=== PATIENT | female | born 1965 | race Caucasian/White ===

== ENCOUNTER 2016-06-29 12:16 | Emergency (ER) | payer OTHER ==
[~2016-06-29] VITALS: Ht 160 cm; Wt 81.8 kg
[~2016-06-29 12:16] MED LIST: B-COCAP9 PO; CLOT1CRE TOP; LIPI20TA PO; MELO15TA2 PO; METO25 PO; NAPR220T95 PO; OXYB5TAB PO
[2016-06-29 12:17] VITALS: BP 229/128; PULSE 89; RESP 16; TEMP 98.2; O2SAT 98
[2016-06-29 13:26] VITALS: BP 136/84; PULSE 65
[2016-06-29] MEDS ORDERED: BENZ100 PO (13:26)
--- NOTE | 2016-06-29 13:26 | PD ---
HPI Chief Complaint: Cold / Flu Symptoms Time Seen by Provider: 13:23 Travel History International Travel<30 days: No Contact w/Intl Traveler<30days: No Traveled to known affect area: No History of Present Illness HPI 51-year-old female with history of hypertension presents to the emergency department for evaluation of nasal congestion, runny nose, sore throat and cough for 5 days. States that her nasal congestion and runny nose has improved since taking [id number] Benadryl and cold medications. States that her cough has persisted. States it is a dry cough that is worse at night. States that initially she had subjective fevers the first 2 days but has since not had any fever. Denies chest pain, shortness of breath, difficulty breathing, lightheadedness, dizziness, nausea, vomiting, abdominal pain. The patient is a smoker but denies any history of lung disease. No other complaints. PFSH Past Medical History Cardiovascular Problems: Yes (HTN ) Diminished Hearing: No Hypertension: Yes ?: Not Menopausal: Yes : 0 Para: 0 Miscarriage: 0 : 0 Social History Alcohol Use: Yes (OCCASIONALLY) Tobacco Use: Yes (1-1.5 PPD) Substance Use: No Allergies-Medications (Allergen,Severity, Reaction): Coded Allergies: Clindamycin (Verified Allergy, Severe, tongue swelling, 06/29/16) Reported Meds & Prescriptions Reported Meds & Active Scripts Active Tessalon Perles (Benzonatate) 100 Mg Cap 100 Mg PO TID PRN 10 Days Review of Systems Except as stated in HPI: all other systems reviewed are Neg Physical Exam Narrative GENERAL: Well-nourished and well-developed pleasant female patient in no acute distress who is nontoxic appearing. SKIN: Warm and dry. HEAD: Normocephalic and atraumatic. EYES: No injection, drainage, or hyphema noted. PERRLA. EOMI. ENT: No nasal drainage noted. Oropharynx is clear and the TMs are normal with good landmarks. NECK: Supple and the trachea is midline. CARDIOVASCULAR: Regular rate and rhythm. RESPIRATORY: Breath sounds are equal bilaterally with no accessory muscle use, wheezing, rhonchi, or crackles. NEUROLOGICAL: Awake, alert, and oriented. Normal speech and gait. Cranial nerves are grossly intact. Data Data Last Documented VS Vital Signs Date Time Temp Pulse Resp B/P Pulse Ox O2 Delivery O2 Flow Rate FiO2 2/1/17 13:26 65 136/84 06/29/16 12:[address] [facility] Medical Decision Making Medical Screen Exam Complete: Yes Emergency Medical Condition: Yes Differential Diagnosis Bronchitis versus URI versus sinusitis versus pneumonia Narrative Course 51-year-old female presents to the emergency department for evaluation of nasal congestion, runny nose, sore throat and cough. Patient is afebrile, vital signs are stable. Physical examination is essentially unremarkable. Lungs are clear to auscultation. The patient has had symptoms for only 5 days. I do not think that she needs any antibiotics at this time. She'll be given Tessalon Perles. Discussed supportive care and when to return to the emergency department. She has an appointment with her PCP tomorrow. Patient is stable for discharge. Diagnosis Primary Impression: Acute bronchitis Qualified Code: J20.9 - Acute bronchitis, unspecified organism Referrals: Primary Care Physician Patient Instructions: Acute Bronchitis (ED), General Instructions Additional Instructions: Take [id number] Mucinex DM. Take medication as prescribed. Follow-up with your Primary Care Physician. Return to the ED for any acute worsening of symptoms. Med/Other Pt SpecificInfo: Prescription(s) given Scripts Benzonatate (Tessalon Perles)100 Mg [id number] Mg PO TID PRN (COUGH) 10 Days Ref 0 Prov:Juan Marc MD 06/29/16 Disposition: 01 DISCHARGE HOME Condition: Stable Lucina Zheng Jun 29, 2016 13:26
== END 2016-06-29 13:38 | disposition home or self-care (01) ==
LOC: NEPB 12:16
DX: J20.9 Acute bronchitis, unspecified (principal); F17.200 Nicotine dependence, unspecified, uncomplicated
CPT/HCPCS: 99283

== ENCOUNTER 2017-07-11 17:57 | Emergency (ER) | payer SELFPAY ==
[~2017-07-11] VITALS: Ht 162.6 cm; Wt 94.0 kg
[~2017-07-11 17:57] MED LIST changes: -B-COCAP9 PO; +BENZ100 PO; -CLOT1CRE TOP; -LIPI20TA PO; -MELO15TA2 PO; -METO25 PO; -NAPR220T95 PO; -OXYB5TAB PO
[2017-07-11 17:58] VITALS: BP 194/112; PULSE 83; RESP 18; TEMP 98.3; O2SAT 98
[2017-07-11] MEDS ORDERED: SODIUM CHLOR 0.9% 1000 ML INJ 1,000 ML IV SCH (18:27)
[2017-07-11] MEDS ORDERED: methylPREDNISolone SOD SUCC 125 MG/2 ML VIAL IM ONE (18:30)
[2017-07-11] MEDS ORDERED: EPINEPHrine HCL (1:1000) 1 MG/ML VIAL IM ONE ×2 (18:30→20:45)
[2017-07-11] MEDS ORDERED: FAMOTIDINE 20 MG/2 ML VIAL IV PUSH ONE (18:30)
[2017-07-11] MEDS ORDERED: diphenhydrAMINE HCL 50 MG/ML VIAL IM ONE (18:30)
[2017-07-11 18:37] VITALS: PULSE 87; RESP 16; O2SAT 98
[2017-07-11] MEDS ORDERED: METO-426 PO (18:39)
[2017-07-11] MEDS: SODIUM CHLORIDE 0.9% FLUSH 10 ML FLUSH IV FLUSH PRN ×2 (18:42→21:59)
--- NOTE | 2017-07-11 18:52 | PD ---
HPI Chief Complaint: Edema Time Seen by Provider: 18:15 Travel History International Travel<30 days: No Contact w/Intl Traveler<30days: No Traveled to known affect area: No History of Present Illness HPI 52-year-old female presents emergency department complaining of tongue swelling started about 4 PM today. Patient states that she was about to walk into her house when he started having a funny feeling on her tongue and it started swelling. Patient denies shortness of breath or chest pain. States that she has had an episode of this previously in June 2015 and 2016. States that she did take 2 Benadryl and use ice without significant relief today. Patient states that she has had burning of her tongue for the last year and a half and has never received any treatment for this. Since previously she has been given epi, Benadryl, steroids and had resolution in about 10 minutes. She denies chronic medical issues although she does smoke tobacco and states that her breathing has not been as good as it has been in previous years. Denies fever, chills, nausea, vomiting, diarrhea. Denies abdominal pain. PFSH Past Medical History Cardiovascular Problems: Yes Diminished Hearing: No Hypertension: Yes Menopausal: Yes : 0 Para: 0 Miscarriage: 0 : 0 Social History Alcohol Use: Yes (OCCASIONALLY) Tobacco Use: Yes (1-1.5 PPD) Substance Use: No Allergies-Medications (Allergen,Severity, Reaction): Coded Allergies: clindamycin (Verified Allergy, Severe, tongue swelling, 07/11/17) Reported Meds & Prescriptions Reported Meds & Active Scripts Active Epinephrine Inj Pack (Epinephrine) 0.15 Mg/0.15 Ml Pfpen 0.15 Mg IM ONCE PRN Medrol Dosepak (Methylprednisolone) 4 Mg Dspk 4 Mg PO DIRECTED Per Pharmacist direction Reported Metoprolol Tartrate 75 Mg Tab 75 Mg PO DAILY Review of Systems Except as stated in HPI: all other systems reviewed are Neg Physical Exam Narrative GENERAL: Well-nourished in no apparent distress, sitting comfortable in bed, somewhat muffled voice, no drooling SKIN: Focused skin assessment warm/dry. HEAD: Atraumatic. Normocephalic. EYES: Pupils equal and round. No scleral icterus. No injection or drainage. ENT: No nasal bleeding or discharge. Mucous membranes pink and moist. Right anterior tongue edema without airway obstruction, equal bilateral rise and fall of uvula, posterior pharynx nonedematous NECK: Trachea midline. No JVD. Neck supple, obese, no obvious lymphadenopathy, no obvious edema although limited exam secondary to obesity CARDIOVASCULAR: Regular rate and rhythm. No murmur appreciated. RESPIRATORY: No accessory muscle use. Diffuse wheezing with scant rhonchi GASTROINTESTINAL: Abdomen soft, non-tender, nondistended. MUSCULOSKELETAL: No obvious deformities. No clubbing. No cyanosis. No edema. NEUROLOGICAL: Awake and alert. No obvious cranial nerve deficits. Motor grossly within normal limits. Normal speech. PSYCHIATRIC: Appropriate mood and affect; insight and judgment normal. Data Data Last Documented VS Vital Signs Date Time Temp Pulse Resp B/P (MAP) Pulse Ox O2 Delivery O2 Flow Rate FiO2 07/11/17 23:32 07/11/17 21:56 108 07/11/17 18:37 16 98 07/11/17 18:35 Room Air 07/11/17 17:58 98.3 Orders Orders Complete Blood Count With Diff (07/11/17 18:27) Comprehensive Metabolic Panel (07/11/17 18:27) Ecg Monitoring (07/11/17 18:27) Iv Access Insert/Monitor (07/11/17 18:27) Oximetry (07/11/17 18:27) Diphenhydramine Inj (Benadryl Inj) (07/11/17 18:30) Methylprednisolone So Succ Inj (Solumedr (07/11/17 18:30) Famotidine Inj (Pepcid Inj) (07/11/17 18:30) Albuterol-Ipratropium Neb (Duoneb Neb) (07/11/17 18:30) Sodium Chlor 0.9% 1000 Ml Inj (Ns 1000 M (07/11/17 18:27) Sodium Chloride 0.9% Flush (Ns Flush) (07/11/17 18:30) Epinephrine (1:1000) Inj (Adrenalin (1:1 (07/11/17 18:30) Chest, Single Ap (07/11/17 ) Epinephrine (1:1000) Inj (Adrenalin (1:1 (07/11/17 20:45) Diphenhydramine Inj (Benadryl Inj) (07/11/17 21:00) Ed Discharge Order (2/13/18 23:18) Labs Laboratory Tests Test 07/11/17 18:51 White Blood Count 11.1 TH/MM3 Red Blood Count 5.61 MIL/MM3 Hemoglobin 16.1 GM/DL Hematocrit 47.1 % Mean Corpuscular Volume 83.9 FL Mean Corpuscular Hemoglobin 28.6 PG Mean Corpuscular Hemoglobin Concent 34.1 % Red Cell Distribution Width 14.1 % Platelet Count 379 TH/MM3 Mean Platelet Volume 7.8 FL Neutrophils (%) (Auto) 60.7 % Lymphocytes (%) (Auto) 29.8 % Monocytes (%) (Auto) 5.4 % Eosinophils (%) (Auto) 3.0 % Basophils (%) (Auto) 1.1 % Neutrophils # (Auto) 6.7 TH/MM3 Lymphocytes # (Auto) 3.3 TH/MM3 Monocytes # (Auto) 0.6 TH/MM3 Eosinophils # (Auto) 0.3 TH/MM3 Basophils # (Auto) 0.1 TH/MM3 CBC Comment DIFF FINAL Differential Comment Blood Urea Nitrogen 8 MG/DL Creatinine 0.81 MG/DL Random Glucose 80 MG/DL Total Protein 8.0 GM/DL Albumin 3.4 GM/DL Calcium Level 9.5 MG/DL Alkaline Phosphatase 169 U/L Aspartate Amino Transf (AST/SGOT) 19 U/L Alanine Aminotransferase (ALT/SGPT) 30 U/L Total Bilirubin 0.2 MG/DL Sodium Level 137 MEQ/L Potassium Level 4.0 MEQ/L Chloride Level 103 MEQ/L Carbon Dioxide Level 27.8 MEQ/L Anion Gap 6 MEQ/L Estimat Glomerular Filtration Rate 75 ML/MIN MDM Medical Decision Making Medical Screen Exam Complete: Yes Emergency Medical Condition: Yes Differential Diagnosis Hereditary angioedema, allergic reaction, anaphylaxis Narrative Course 52-year-old female presents emergency department complaining of tongue swelling started about 4 PM today. Patient states that she was about to walk into her house when he started having a funny feeling on her tongue and it started swelling. Patient denies shortness of breath or chest pain. States that she has had an episode of this previously in June 2015 and 2016. States that she did take 2 Benadryl and use ice without significant relief today. Patient states that she has had burning of her tongue for the last year and a half and has never received any treatment for this. Since previously she has been given epi, Benadryl, steroids and had resolution in about 10 minutes. She denies chronic medical issues although she does smoke tobacco and states that her breathing has not been as good as it has been in previous years. Denies fever, chills, nausea, vomiting, diarrhea. Denies abdominal pain. Patient does use tobacco. Vital signs stable. Labs demonstrates no electrolyte abnormalities, kidney function stable, white blood cells 11.1, RBCs 5.61, H&H 16.1 and 47.1. Chest X ray demonstrates no acute disease however, on physical exam wheezing was present bilateral lung garcia. Patient administered epinephrine, 1 L normal saline IV fluids, famotidine, Solu- Medrol, Benadryl. Patient states that she had significant improvement however, she still had the tongue swelling. Patient has had previous episodes that usually resolve within several minutes after administration of medication. Because she did not have complete resolution, administered 1 more dose of epinephrine and Benadryl. Patient remained stable during the visit today and do not demonstrate significant respiratory distress. She was observed for several hours in the emergency department today and remained stable. Patient states that her tongue swelling has significantly decreased and that she is feeling better overall. Please see Dr. Carmona note regarding this patient as well for final dispo. Diagnosis Primary Impression: Allergic reaction Qualified Codes: T78.40XA - Allergy, unspecified, initial encounter Referrals: Primary Care Physician Scripts Epinephrine Inj Pack (Epinephrine Inj Pack) 0.15 Mg/0.15 Ml Pfpen 0.15 MG IM ONCE Y for ALLERGIC REACTION, #1 PACK Prov: Tony Carmona MD 07/11/17 Methylprednisolone Dosepak (Medrol Dosepak) 4 Mg Dspk 4 MG PO DIRECTED, #1 DSPK 0 Refills Per Pharmacist direction Prov: Tony Carmona MD 07/11/17 Disposition: DISCHARGE HOME Condition: Stable Berna Murdock Jul 11, 2017 18:52
--- NOTE | 2017-07-11 19:01 | RADRPT ---
EXAM DATE/TIME: 07/11/2017 18:47 [facility] COMPARISON: CHEST SINGLE AP, December 03, 2015, 21:55. INDICATIONS : Wheezing. MEDICAL HISTORY : None. SURGICAL HISTORY : None. ENCOUNTER: Initial ACUITY: 1 day PAIN SCORE: 0/10 LOCATION: Bilateral chest FINDINGS: A single view of the chest demonstrates the lungs to be symmetrically aerated without evidence of mas s, infiltrate or effusion. The cardiomediastinal contours are unremarkable. Osseous structures are intact. CONCLUSION: No acute disease. Jacek Andrade MD on July 11, 2017 at 18:58 Board Certified Radiologist. This report was verified electronically.
[2017-07-11 19:07] LABS: AUTOMATED NEUTROPHIL # 6.7 TH/MM3 (1.8-7.7); BASOPHIL # 0.1 TH/MM3 (0-0.2); BASOPHIL % 1.1 % (0.0-2.0); EOSINOPHIL # 0.3 TH/MM3 (0-0.4); HEMATOCRIT 47.1 % (35.0-46.0); HEMOGLOBIN 16.1 GM/DL (11.6-15.3); LYMPH % 29.8 % (9.0-44.0); LYMPHOCYTE # 3.3 TH/MM3 (1.0-4.8); MEAN CELL VOLUME 83.9 FL (80.0-100.0); MEAN CORPUSCULAR HEMOGLOBIN 28.6 PG (27.0-34.0); MEAN CORPUSCULAR HGB CONC 34.1 % (32.0-36.0); MEAN PLATELET VOLUME 7.8 FL (7.0-11.0); MONO % 5.4 % (0.0-8.0); MONOCYTE # 0.6 TH/MM3 (0-0.9); NEUT % 60.7 % (16.0-70.0); PLATELET COUNT 379 TH/MM3 (150-450); RED BLOOD COUNT 5.61 MIL/MM3 (4.00-5.30); RED CELL DISTRIBUTION WIDTH 14.1 % (11.6-17.2); WHITE BLOOD COUNT 11.1 TH/MM3 (4.0-11.0)
[2017-07-11] MEDS: RESP: ALBUTEROL 2.5 MG/IPRATROPIUM 0.5 MG NEB (SCH) INH (19:20)
[2017-07-11 19:36] LABS: ALBUMIN 3.4 GM/DL (3.4-5.0); AST (GOT) 19 U/L (15-37); BICARBONATE 27.8 MEQ/L (21.0-32.0); BLOOD UREA NITROGEN 8 MG/DL (7-18); CALCIUM 9.5 MG/DL (8.5-10.1); CHLORIDE 103 MEQ/L (98-107); CREATININE 0.81 MG/DL (0.50-1.00); GLOMERULAR FILTRATION RATE 75 ML/MIN (>89); GLUCOSE,RANDOM 80 MG/DL (74-106); SODIUM (NA) 137 MEQ/L (136-145)
[2017-07-11 19:37] LABS: ALT (GPT) 30 U/L (10-53)
[2017-07-11 19:40] LABS: ALKALINE PHOSPHATASE 169 U/L (45-117); TOTAL BILIRUBIN ADULT 0.2 MG/DL (0.2-1.0)
[2017-07-11] MEDS ORDERED: diphenhydrAMINE HCL 50 MG/ML VIAL IV PUSH ONE (21:00)
[2017-07-11 21:56] VITALS: BP 172/77; PULSE 108
[2017-07-11] MEDS ORDERED: EPIN1INJ19 IM (23:16)
[2017-07-11] MEDS ORDERED: MEDR4PAK PO (23:16)
--- NOTE | 2017-07-11 23:18 | PD ---
Physical Exam Narrative Patient seen and examined. Patient has yearly swelling of her tongue and allergic reaction type symptoms since moving to [place] 4 years ago. Patient greatly improved after treatment by Berna MCINTOSH with steroids, Benadryl, and epinephrine. Observe for nearly 6 hours, patient's symptoms have almost entirely abated. Discharge Data Data Last Documented VS Vital Signs Date Time Temp Pulse Resp B/P (MAP) Pulse Ox O2 Delivery O2 Flow Rate FiO2 07/11/17 21:56 108 172/77 07/11/17 18:37 16 98 07/11/17 18:35 Room Air 07/11/17 17:58 98.3 Orders Orders Complete Blood Count With Diff (07/11/17 18:27) Comprehensive Metabolic Panel (07/11/17 18:27) Ecg Monitoring (07/11/17 18:27) Iv Access Insert/Monitor (07/11/17 18:27) Oximetry (07/11/17 18:27) Diphenhydramine Inj (Benadryl Inj) (07/11/17 18:30) Methylprednisolone So Succ Inj (Solumedr (07/11/17 18:30) Famotidine Inj (Pepcid Inj) (07/11/17 18:30) Albuterol-Ipratropium Neb (Duoneb Neb) (07/11/17 18:30) Sodium Chlor 0.9% 1000 Ml Inj (Ns 1000 M (07/11/17 18:27) Sodium Chloride 0.9% Flush (Ns Flush) (07/11/17 18:30) Epinephrine (1:1000) Inj (Adrenalin (1:1 (07/11/17 18:30) Chest, Single Ap (07/11/17 ) Epinephrine (1:1000) Inj (Adrenalin (1:1 (07/11/17 20:45) Diphenhydramine Inj (Benadryl Inj) (07/11/17 21:00) Labs Laboratory Tests Test 07/11/17 18:51 White Blood Count 11.1 TH/MM3 Red Blood Count 5.61 MIL/MM3 Hemoglobin 16.1 GM/DL Hematocrit 47.1 % Mean Corpuscular Volume 83.9 FL Mean Corpuscular Hemoglobin 28.6 PG Mean Corpuscular Hemoglobin Concent 34.1 % Red Cell Distribution Width 14.1 % Platelet Count 379 TH/MM3 Mean Platelet Volume 7.8 FL Neutrophils (%) (Auto) 60.7 % Lymphocytes (%) (Auto) 29.8 % Monocytes (%) (Auto) 5.4 % Eosinophils (%) (Auto) 3.0 % Basophils (%) (Auto) 1.1 % Neutrophils # (Auto) 6.7 TH/MM3 Lymphocytes # (Auto) 3.3 TH/MM3 Monocytes # (Auto) 0.6 TH/MM3 Eosinophils # (Auto) 0.3 TH/MM3 Basophils # (Auto) 0.1 TH/MM3 CBC Comment DIFF FINAL Differential Comment Blood Urea Nitrogen 8 MG/DL Creatinine 0.81 MG/DL Random Glucose 80 MG/DL Total Protein 8.0 GM/DL Albumin 3.4 GM/DL Calcium Level 9.5 MG/DL Alkaline Phosphatase 169 U/L Aspartate Amino Transf (AST/SGOT) 19 U/L Alanine Aminotransferase (ALT/SGPT) 30 U/L Total Bilirubin 0.2 MG/DL Sodium Level 137 MEQ/L Potassium Level 4.0 MEQ/L Chloride Level 103 MEQ/L Carbon Dioxide Level 27.8 MEQ/L Anion Gap 6 MEQ/L Estimat Glomerular Filtration Rate 75 ML/MIN [facility] Medical Record Reviewed: Yes Supervised Visit with SHANNON: Yes Differential Diagnosis Allergic reaction, angioedema Narrative Course See narrative Diagnosis Primary Impression: Allergic reaction Qualified Codes: T78.40XA - Allergy, unspecified, initial encounter Referrals: Primary Care Physician Patient Instructions: General Allergic Reaction (ED), General Instructions Additional Instruction: Medrol Dosepak as prescribed. Follow-up with your doctor. Benadryl 25-50 mg every 8 hours as needed for swelling. EpiPen as directed only as needed. Return probably for worsening Scripts Epinephrine Inj Pack (Epinephrine Inj Pack) 0.15 Mg/0.15 Ml Pfpen 0.15 MG IM ONCE Y for ALLERGIC REACTION, #1 PACK Prov: Tony Carmona MD 07/11/17 Methylprednisolone Dosepak (Medrol Dosepak) 4 Mg Dspk 4 MG PO DIRECTED, #1 DSPK 0 Refills Per Pharmacist direction Prov: Tony Carmona MD 07/11/17 Disposition: 01 DISCHARGE HOME Condition: Stable Tony Carmona MD Jul 11, 2017 23:18
== END 2017-07-11 23:32 | disposition home or self-care (01) ==
LOC: NEPC 17:57
DX: T78.40XA Allergy, unspecified, initial encounter (principal); R22.0 Localized swelling, mass and lump, head; R06.2 Wheezing; I10 Essential (primary) hypertension; F17.210 Nicotine dependence, cigarettes, uncomplicated; Z88.8 Allergy status to other drugs, medicaments and biological substances; Z79.899 Other long term (current) drug therapy
CPT/HCPCS: 71045; 80053; 85025; 94640; 94664; 96372; 96374; 96375; 99284; J0171; J1200; J2930; J7030

== ENCOUNTER 2017-09-07 16:30 | Emergency (ER) | payer SELFPAY ==
[~2017-09-07] VITALS: Ht 162.6 cm; Wt 98.0 kg
[~2017-09-07 16:30] MED LIST changes: -BENZ100 PO; +EPIN1INJ19 IM; +MEDR4PAK PO; +METO-426 PO
[2017-09-07 17:09] VITALS: BP 201/88; PULSE 78; RESP 16; TEMP 98.1; O2SAT 99
== END 2017-09-07 18:37 | disposition left against medical advice (07) ==
LOC: NED 16:30
DX: K08.89 Other specified disorders of teeth and supporting structures (principal)
CPT/HCPCS: 99281